=== PATIENT | female | born 1950 | race Two or more races ===

== ENCOUNTER 2024-02-23 19:22 | Inpatient (IN) | payer MEDICAID, OTHER ==
[~2024-02-23] VITALS: Ht 167.6 cm; Wt 134.4 kg
[2024-02-23 22:16] LABS: Basophils # (auto) 0.1 10 ^3/uL (0-0.2); Basophils % (auto) 0.6 % (0.0-2.0); Eosinophils # (auto) 0.1 10 ^3/uL (0-0.8); Eosinophils % (auto) 0.5 % (0.0-7.0); Hematocrit 42.7 % (36.0-46.0); Hemoglobin 14.2 g/dL (12.2-16.2); Lymphocytes # (auto) 1.2 10 ^3/uL (0.4-5.4); Lymphocytes % (auto) 9.7 % (10.0-50.0); Mean Corpuscular Hemoglobin 29.5 pg (28.0-32.0); Mean Corpuscular Hgb Conc. 33.3 g/dL (32.0-36.0); Mean Corpuscular Volume 88.6 fL (80.0-100.0); Monocytes # (auto) 1.1 10 ^3/uL (0-1.3); Monocytes % (auto) 8.4 % (0.0-12.0); Neutrophils # (auto) 10.2 10 ^3/uL (1.6-8.6); Neutrophils % (auto) 80.8 % (37.0-80.0); Nucleated Red Blood Cells % 0.1 %; Red Blood Cells 4.82 10^6/uL (4.0-5.20); Red Cell Distribution Width 14.5 % (11.8-14.3); White Blood Cell 12.7 10^3/uL (4.4-10.8)
[2024-02-23 22:34] LABS: Alanine Aminotransferase 49 U/L (7-40); Albumin 4.2 g/dL (3.2-4.8); Alkaline Phosphatase 83 U/L (46-116); Anion Gap 9 (5-15); Aspartate Aminotransferase 39 U/L (13-40); Bilirubin, Total 0.9 mg/dL (0.2-1.0); Blood Urea Nitrogen 35 mg/dL (9-23); Calcium 9.2 mg/dL (8.7-10.4); Carbon Dioxide 27 mmol/L (20-30); Chloride 103 mmol/L (98-107); Glucose 114 mg/dL (74-106); Potassium 3.6 mmol/L (3.5-5.1); Sodium 139 mmol/L (136-145)
[2024-02-23 22:35] LABS: Total Protein 6.7 g/dL (5.7-8.2)
[2024-02-23] MEDS: SODIUM CHLORIDE 0.9% 1,000 ML IV ONE (22:37)
[2024-02-23] MEDS: PANTOPRAZOLE 40 MG/10 ML VIAL INJ IV ONE (23:00)
[2024-02-23] MEDS: ONDANSETRON HCL 4 MG/2 ML VIAL IV ONE (23:00)
[2024-02-23] MEDS: MORPHINE SULFATE 4 MG/ML SYR/VIAL IV ONE (23:01)
[2024-02-23] MEDS ORDERED: DEXTROSE (50%) 50ML SYRG IV PRN (23:15)
[2024-02-23] MEDS: LACTATED RINGER'S 1,000 ML IV ONE (23:43)
[2024-02-24] VITALS (14 sets, daily range): BP systolic 102–167; BP diastolic 37–68; PULSE 75–99; RESP 15–20; TEMP 98–98.6; O2SAT 90–99
[2024-02-24] MEDS: InsuLIN REG 1unit/0.01ml Soln (100units/ml) SC SCH
[2024-02-24] MEDS: ACCU-CHEK COMFORT CURVE STRIP VI SCH (00:56)
[2024-02-24] MEDS: LACTATED RINGER'S 1,000 ML IV SCH (01:14)
[2024-02-24] MEDS: HYDROmorphone HCL 2 MG/ML VL/or syr IV PRN (02:23)
[2024-02-24] MEDS ORDERED: HYDR12.59 PO (04:18)
[2024-02-24] MEDS ORDERED: ASPI325T6 PO (04:18)
[2024-02-24] MEDS ORDERED: CHOL20007 PO (04:18)
[2024-02-24] MEDS: SODIUM CHLOR 0.9% PF (SALINE LOCK) 10ML VIAL/SYR IV SCH (06:30)
[2024-02-24] MEDS: ceFAZolin 1GM/50ML 50 ML IV ONE (07:54)
[2024-02-24] MEDS ORDERED: MIDAZOLAM HCL 2MG/2ML 2ml VIAL (1mg/ml) ONE (08:08)
[2024-02-24] MEDS ORDERED: fentaNYL CITRATE 5 ML ONE (08:09)
[2024-02-24] MEDS ORDERED: PROPOFOL 10 MG/ML 20 ML IV ONE (08:11)
[2024-02-24] MEDS ORDERED: ONDANSETRON HCL 4 MG/2 ML VIAL ONE (08:11)
[2024-02-24] MEDS ORDERED: LIDOCAINE 2% (LOCAL ANESTH.) PF 5ml SDV ONE (08:11)
[2024-02-24] MEDS ORDERED: ROCURONIUM 10MG/ML 10ML VIAL IV ONE (08:11)
[2024-02-24] MEDS ORDERED: HYDROmorphone HCL 2 MG/ML VL/or syr ONE (08:53)
[2024-02-24] MEDS ORDERED: GLYCOPYRROLATE 0.2 MG/ML 1ML VIAL ONE ×2 (09:36→09:37)
[2024-02-24] MEDS ORDERED: NEOSTIGMINE 1 MG/ML INJ (10mg/10ML VIAL) ONE (09:38)
[2024-02-24] MEDS: ACETAMINOPHEN IV 1000 MG/100ML (10MG/ML) IV PRN (10:18)
[2024-02-24] MEDS: ACETAMINOPHEN IV 100 ML IV ONE (10:21)
[2024-02-24 10:31] LABS: Base Excess -3.1 mmol/L (-2.0-2.0)
[2024-02-24] MEDS: PANTOPRAZOLE 40 MG/10 ML VIAL INJ IV SCH (12:54)
[2024-02-24 13:31] LABS: Chloride 107 mmol/L (98-107); Potassium 3.9 mmol/L (3.5-5.1); Sodium 139 mmol/L (136-145)
[2024-02-24 13:32] LABS: Anion Gap 5 (5-15); Calcium 7.9 mg/dL (8.7-10.4); Carbon Dioxide 27 mmol/L (20-30)
[2024-02-24 13:37] LABS: BUN/Creatinine Ratio 19.1 (10.0-20.0); Blood Urea Nitrogen 29 mg/dL (9-23); Glucose 118 mg/dL (74-106)
[2024-02-24 13:42] LABS: INR 1.03 (0.9-1.15); Partial Thromboplastin Time 26.1 SEC (24.5-34.5); Prothrombin Time 10.9 sec (9.3-11.8)
[2024-02-24] MEDS ORDERED: OMEG100062 PO (18:25)
[2024-02-24] MEDS ORDERED: ENAL1TAB42 PO (18:25)
[2024-02-24] MEDS ORDERED: ATOR20TA50 PO (18:25)
[2024-02-25] VITALS (12 sets, daily range): BP systolic 122–161; BP diastolic 54–60; PULSE 81–91; RESP 18–22; TEMP 97.7–98.8; O2SAT 94–99
[2024-02-25 06:12] LABS: Chloride 104 mmol/L (98-107); Potassium 3.6 mmol/L (3.5-5.1); Sodium 142 mmol/L (136-145)
[2024-02-25 06:13] LABS: Anion Gap 8 (5-15); Calcium 8.3 mg/dL (8.7-10.4); Carbon Dioxide 30 mmol/L (20-30)
[2024-02-25 06:18] LABS: Glucose 87 mg/dL (74-106)
[2024-02-25 06:19] LABS: BUN/Creatinine Ratio 23.4 (10.0-20.0); Blood Urea Nitrogen 26 mg/dL (9-23)
[2024-02-25] MEDS ORDERED: SUCCINYLCHOLINE CHLORIDE 20 MG/ML 10ML VIAL IV ONE (13:51)
[2024-02-25] MEDS ORDERED: MULT1TAB95 PO (16:57)
[2024-02-25] MEDS ORDERED: ASPI81CH59 PO (16:57)
[2024-02-26] VITALS (11 sets, daily range): BP systolic 127–155; BP diastolic 50–63; PULSE 79–95; RESP 18–21; TEMP 97.7–98.6; O2SAT 91–99
[2024-02-26] MEDS: IPRATROPIUM BROM 0.5 MG/2.5ML INH SOL NEB PRN (06:28)
[2024-02-26] MEDS: ALBUTEROL SULF 2.5 MG/0.5ML(0.5%) NEB SOLN NEB PRN (06:28)
[2024-02-27] VITALS (12 sets, daily range): BP systolic 138–157; BP diastolic 61–80; PULSE 73–89; RESP 18–22; TEMP 97.9–98.3; O2SAT 92–98
[2024-02-27 09:14] LABS: Basophils # (auto) 0 10 ^3/uL (0-0.2); Basophils % (auto) 0.5 % (0.0-2.0); Eosinophils # (auto) 0.2 10 ^3/uL (0-0.8); Hematocrit 39.1 % (36.0-46.0); Hemoglobin 12.7 g/dL (12.2-16.2); Lymphocytes # (auto) 1.2 10 ^3/uL (0.4-5.4); Lymphocytes % (auto) 12.8 % (10.0-50.0); Mean Corpuscular Hemoglobin 29.2 pg (28.0-32.0); Mean Corpuscular Hgb Conc. 32.4 g/dL (32.0-36.0); Mean Corpuscular Volume 90.1 fL (80.0-100.0); Monocytes # (auto) 0.6 10 ^3/uL (0-1.3); Monocytes % (auto) 6.2 % (0.0-12.0); Neutrophils # (auto) 7.2 10 ^3/uL (1.6-8.6); Neutrophils % (auto) 78.5 % (37.0-80.0); Red Blood Cells 4.34 10^6/uL (4.0-5.20); Red Cell Distribution Width 14.4 % (11.8-14.3); White Blood Cell 9.2 10^3/uL (4.4-10.8)
[2024-02-27] MEDS: ONDANSETRON HCL 4 MG/2 ML VIAL IV PRN (09:16)
[2024-02-27 09:29] LABS: Chloride 107 mmol/L (98-107); Potassium 3.8 mmol/L (3.5-5.1); Sodium 145 mmol/L (136-145)
[2024-02-27 09:30] LABS: Anion Gap 8 (5-15); Calcium 9.1 mg/dL (8.7-10.4); Carbon Dioxide 30 mmol/L (20-30)
[2024-02-27 09:35] LABS: BUN/Creatinine Ratio 24.6 (10.0-20.0); Blood Urea Nitrogen 17 mg/dL (9-23); Glucose 83 mg/dL (74-106)
[2024-02-28] VITALS (13 sets, daily range): BP systolic 146–166; BP diastolic 58–82; PULSE 70–84; RESP 18–20; TEMP 97.8–98.5; O2SAT 93–100
[2024-02-28 06:10] LABS: Anion Gap 10 (5-15); Carbon Dioxide 32 mmol/L (20-30); Chloride 107 mmol/L (98-107); Potassium 3.6 mmol/L (3.5-5.1); Sodium 149 mmol/L (136-145)
[2024-02-28 06:11] LABS: Calcium 9.1 mg/dL (8.7-10.4)
[2024-02-28 06:16] LABS: Glucose 72 mg/dL (74-106)
[2024-02-28 06:17] LABS: Blood Urea Nitrogen 19 mg/dL (9-23)
[2024-02-29] VITALS (10 sets, daily range): BP systolic 150–168; BP diastolic 68–86; PULSE 69–78; RESP 18–20; TEMP 97.5–98.4; O2SAT 72–100
[2024-02-29 07:47] LABS: Alanine Aminotransferase 21 U/L (7-40); Albumin 3.4 g/dL (3.2-4.8); Alkaline Phosphatase 67 U/L (46-116); Anion Gap 7 (5-15); Aspartate Aminotransferase 17 U/L (13-40); BUN/Creatinine Ratio 17.6 (10.0-20.0); Blood Urea Nitrogen 13 mg/dL (9-23); Calcium 9.1 mg/dL (8.7-10.4); Carbon Dioxide 32 mmol/L (20-30); Chloride 110 mmol/L (98-107); Glucose 107 mg/dL (74-106); Magnesium 1.8 mg/dL (1.6-2.6); Potassium 3.6 mmol/L (3.5-5.1); Sodium 149 mmol/L (136-145)
[2024-02-29 07:48] LABS: Bilirubin, Total 0.4 mg/dL (0.2-1.0); Total Protein 5.5 g/dL (5.7-8.2)
[2024-03-01 01:00] VITALS: BP 141/71; PULSE 69; RESP 18; TEMP 98; O2SAT 98
[2024-03-01 05:00] VITALS: BP 125/68; PULSE 69; RESP 18; TEMP 98; O2SAT 98
[2024-03-01 08:00] VITALS: PULSE 62
[2024-03-01 08:26] LABS: Anion Gap 8 (5-15); Carbon Dioxide 33 mmol/L (20-30); Chloride 108 mmol/L (98-107); Potassium 3.5 mmol/L (3.5-5.1); Sodium 149 mmol/L (136-145)
[2024-03-01 08:27] LABS: Calcium 9.3 mg/dL (8.7-10.4)
[2024-03-01 08:32] LABS: BUN/Creatinine Ratio 16.9 (10.0-20.0); Blood Urea Nitrogen 14 mg/dL (9-23); Glucose 98 mg/dL (74-106)
[2024-03-01 09:00] VITALS: BP 167/85; PULSE 74; RESP 20; TEMP 98.3; O2SAT 93
[2024-03-01 10:00] VITALS: O2SAT 93
[2024-03-01 13:00] VITALS: BP 158/85; PULSE 69; RESP 20; TEMP 97.6; O2SAT 95
== END 2024-03-01 15:46 | disposition home or self-care (01) | DRG 228 ==
LOC: ER 19:22 → TELE 22:57 → TELE-WESTW 02-24 01:26
PROVIDERS: ADMIT Internal Medicine; ATTEND Internal Medicine Geriatric Medicine
PROC: 0WQF0ZZ Repair Abdominal Wall, Open Approach (ICD-10-PCS; 2024-02-24)
PROC: 0DBU0ZZ Excision of Omentum, Open Approach (ICD-10-PCS; principal; 2024-02-24 08:02)
PROC: 0D9670Z Drainage of Stomach with Drainage Device, Via Natural or Artificial Opening (ICD-10-PCS; 2024-02-26)
DX: K42.0 Umbilical hernia with obstruction, without gangrene (principal); J96.01 Acute respiratory failure with hypoxia; N17.0 Acute kidney failure with tubular necrosis; E87.0 Hyperosmolality and hypernatremia; N18.9 Chronic kidney disease, unspecified; E66.01 Morbid (severe) obesity due to excess calories; F17.210 Nicotine dependence, cigarettes, uncomplicated; Z68.42 Body mass index [BMI] 45.0-49.9, adult; Z82.0 Family history of epilepsy and other diseases of the nervous system; Z82.3 Family history of stroke; Z82.49 Family history of ischemic heart disease and other diseases of the circulatory system
CPT/HCPCS: 36415; 36600; 71045; 74176; 76775; 80048; 80053; 82805; 82962; 83735; 85025; 85610; 85730; 94640; 96360; 97110; 97116; 97163; 97530; G0378; J0131; J0330; J2001; J2250; J2405; J2470; J2704